=== PATIENT | female | born 1970 | race Native Hawaiian/Other Pacific Islander ===

== ENCOUNTER 2020-11-22 09:13 | Outpatient (CLI) | payer OTHER | END 2020-11-22 19:09 | disposition home or self-care (01) | LOC: LAB 09:13 | PROVIDERS: ATTEND Nurse Practitioner Family | DX: U07.1 COVID-19 (principal); J06.9 Acute upper respiratory infection, unspecified; R50.9 Fever, unspecified; Z11.59 Encounter for screening for other viral diseases | CPT/HCPCS: 87635; G2023; U0003 ==

== ENCOUNTER 2020-11-27 14:47 | Inpatient (IN) | payer OTHER ==
[~2020-11-27] VITALS: Ht 162.6 cm; Wt 132.2 kg
[2020-11-27] VITALS (10 sets, daily range): BP systolic 102–131; BP diastolic 43–76; TEMP 99.2–99.3; Ht 162.6 cm; Wt 132.2 kg
[2020-11-27 15:26] LABS: PLATELET COUNT 233 K/uL (152-353)
[2020-11-27 15:36] LABS: POTASSIUM 3.7 mmol/L (3.6-5.2); SODIUM 132 mmol/L (136-145)
[2020-11-27 15:51] LABS: PARTIAL THROMBOPLASTIN TIME 26.1 SECONDS (24.5-33.6)
[2020-11-27] MEDS ORDERED: AMOX875T8 PO (21:45)
[2020-11-27] MEDS ORDERED: PROMETHAZINE (21:48)
[2020-11-27] MEDS ORDERED: TESSALON PER100 MG PO (21:49)
[2020-11-27] MEDS ORDERED: FEXO60TA PO (21:51)
[2020-11-27] MEDS ORDERED: FURO40TA93 PO (21:52)
[2020-11-27] MEDS ORDERED: SERT50TA PO (21:53)
[2020-11-27] MEDS ORDERED: HYDR200T3 PO (21:54)
[2020-11-27] MEDS ORDERED: DULO30CA PO (21:55)
[2020-11-27] MEDS ORDERED: METF500T PO (21:55)
[2020-11-27] MEDS ORDERED: LEVO0.0218 PO (21:56)
[2020-11-27] MEDS ORDERED: QMIIZ ODT15 MG PO (21:57)
[2020-11-27] MEDS ORDERED: MICARDIS HCT PO (21:58)
[2020-11-27] MEDS ORDERED: KP FOLIC ACID1 MG PO (21:59)
[2020-11-27] MEDS ORDERED: VITAMIN D35000 UNI1 PO (21:59)
[2020-11-28] VITALS: BP 130/75; TEMP 99.5
[2020-11-28 04:22] VITALS: BP 105/61; TEMP 97.9
[2020-11-28 06:04] LABS: PLATELET COUNT 246 K/uL (152-353)
[2020-11-28 06:20] LABS: POTASSIUM 4.3 mmol/L (3.6-5.2)
[2020-11-28 08:00] VITALS: BP 107/63; TEMP 97.7
[2020-11-28 12:00] VITALS: BP 101/57; TEMP 97.2
[2020-11-28 16:00] VITALS: BP 98/56; TEMP 98.3
[2020-11-28 20:00] VITALS: BP 95/56; TEMP 98.9
[2020-11-29] VITALS: BP 112/78; TEMP 98.9
[2020-11-29 04:15] VITALS: BP 120/86; TEMP 97.7
[2020-11-29 06:41] LABS: PLATELET COUNT 264 K/uL (152-353)
[2020-11-29 08:00] VITALS: BP 108/64; TEMP 97.5
[2020-11-29 10:10] LABS: POTASSIUM 4.5 mmol/L (3.6-5.2)
[2020-11-29 12:00] VITALS: BP 94/41; TEMP 98.1
[2020-11-29 16:00] VITALS: BP 127/64; TEMP 97.8
[2020-11-29 20:00] VITALS: BP 130/70; TEMP 98.6
[2020-11-30] VITALS: BP 113/59; TEMP 98.2
[2020-11-30 04:26] VITALS: BP 133/76; TEMP 98
[2020-11-30 05:54] LABS: PLATELET COUNT 308 K/uL (152-353)
[2020-11-30 06:09] LABS: POTASSIUM 4.3 mmol/L (3.6-5.2)
[2020-11-30 08:00] VITALS: BP 105/68; TEMP 97.6
[2020-11-30 12:00] VITALS: BP 118/62; TEMP 97.9
[2020-11-30 16:00] VITALS: BP 126/74; TEMP 98.4
[2020-11-30 20:00] VITALS: BP 147/75; TEMP 98.2
[2020-12-01] VITALS: BP 94/48; TEMP 97.8
[2020-12-01 04:00] VITALS: BP 115/73; TEMP 98.6
[2020-12-01 05:55] LABS: PLATELET COUNT 344 K/uL (152-353)
[2020-12-01 06:07] LABS: POTASSIUM 4.6 mmol/L (3.6-5.2)
[2020-12-01 08:00] VITALS: BP 114/61; TEMP 97.6
[2020-12-01 12:00] VITALS: BP 129/64; TEMP 97.8
[2020-12-01 16:00] VITALS: BP 117/66; TEMP 97.8
[2020-12-01 20:00] VITALS: BP 108/62; BP 158/83; TEMP 98.1; TEMP 98.2
[2020-12-02] VITALS: BP 119/69; TEMP 97.7
[2020-12-02 04:00] VITALS: BP 101/60; TEMP 97.7
[2020-12-02 06:08] LABS: PLATELET COUNT 380 K/uL (152-353)
[2020-12-02 06:27] LABS: POTASSIUM 3.5 mmol/L (3.6-5.2)
[2020-12-02 08:00] VITALS: BP 116/71; TEMP 97.8
[2020-12-02 12:00] VITALS: BP 140/81; TEMP 97.7
[2020-12-02 16:00] VITALS: BP 133/67; TEMP 98.2
[2020-12-02 20:00] VITALS: BP 133/84; TEMP 99
[2020-12-03] VITALS (7 sets, daily range): BP systolic 107–143; BP diastolic 57–79; TEMP 97.5–98.3
[2020-12-03 06:28] LABS: PLATELET COUNT 438 K/uL (152-353)
[2020-12-03 06:42] LABS: POTASSIUM 3.4 mmol/L (3.6-5.2)
[2020-12-04 04:00] VITALS: BP 132/90; TEMP 97.9
[2020-12-04 06:24] LABS: PLATELET COUNT 493 K/uL (152-353)
[2020-12-04 06:36] LABS: POTASSIUM 3.4 mmol/L (3.6-5.2)
[2020-12-04 08:00] VITALS: BP 144/90; TEMP 98.3
[2020-12-04] MEDS ORDERED: CEFU250T2 PO (10:38)
== END 2020-12-04 13:50 | disposition home or self-care (01) | DRG 177 ==
LOC: ED 14:47 → MED/SURG 16:40
PROVIDERS: Hospitalist; Internal Medicine Endocrinology, Diabetes & Metabolism
DX: U07.1 COVID-19 (principal); J18.8 Other pneumonia, unspecified organism; J96.01 Acute respiratory failure with hypoxia; Z68.42 Body mass index [BMI] 45.0-49.9, adult; E87.1 Hypo-osmolality and hyponatremia; E66.01 Morbid (severe) obesity due to excess calories; E11.9 Type 2 diabetes mellitus without complications; I10 Essential (primary) hypertension; G89.4 Chronic pain syndrome; M06.8A Other specified rheumatoid arthritis, other specified site; E87.6 Hypokalemia
CPT/HCPCS: 36415; 36600; 80053; 82550; 82805; 83880; 84484; 85027; 85610; 85730; 93005; 94667; 94668; 94760; 96360; 96375; 99284; J0456; J0696; J1100; J1650; J1815; J2405; J3490